=== PATIENT | female | born 1995 | race Caucasian/White ===

== ENCOUNTER → 2018-05-10 | Outpatient (CLI) | payer BC | LOC: M RAD 09:49 | DX: Z36.89 Encounter for other specified antenatal screening (principal); Z3A.17 17 weeks gestation of pregnancy | CPT/HCPCS: 76811 ==

== ENCOUNTER → 2018-07-10 | Outpatient (CLI) | payer BC ==
--- NOTE | 2018-07-11 06:16 | REP ---
Clinical: Anatomical evaluation. Comparison: 05/10/2018 . Findings: Examination demonstrates a single live intrauterine in cephalic presentation. motion is identified by technologist. Placenta is noted posterior fundal and grade grade zero without evidence for placenta previa or abruption. Amniotic fluid volume is normal. Cervix measures 3.5 cm in length and appears closed. No evidence for nuchal cord. Gestational age by LMP 28 weeks 0 days with JEFF 10/02/2018 . Gestational age by current measurements 26 weeks 0-day with JEFF is 10/16/2018 . FHR equals 126 beats per minute. Estimated weight a 179 grams ( 27th percentile based on age by first ultrasound ). Anatomical assessment demonstrates normal structures including cranium, choroid plexus, cavum, cerebellum/posterior fossa, facial features, lungs, four-chamber heart/ventricular outflow tracts, diaphragm, stomach, cord insertion/three-vessel cord, kidneys/bladder, and extremities. Impression: Single live intrauterine in cephalic presentation demonstrating appropriate interval growth. 2. In conjunction with prior examination anatomical assessment is complete and normal. No gross abnormalities are identified. Electronically Signed by John Astudillo MD 07/11/2018 06:08 A
== END ==
LOC: M RAD 09:17
PROVIDERS: ATTEND Advanced Practice Midwife
DX: Z36.2 Encounter for other antenatal screening follow-up (principal); Z3A.28 28 weeks gestation of pregnancy

== ENCOUNTER 2018-07-22 23:57 | Outpatient (CLI) | payer BC ==
[~2018-07-22] VITALS: Ht 162.6 cm; Wt 65.9 kg
[2018-07-23 00:17] VITALS: BP 123/70
[2018-07-23] MEDS ORDERED: PRENTAB9 PO (00:20)
== END 2018-07-23 01:24 | disposition home or self-care (01) ==
LOC: M LDO 23:57
PROVIDERS: ATTEND Specialist
DX: O26.892 Other specified pregnancy related conditions, second trimester (principal); Z3A.27 27 weeks gestation of pregnancy
CPT/HCPCS: 59025; G0378; G0463

== ENCOUNTER → 2018-07-26 | Outpatient (CLI) | payer BC ==
[~2018-07-26] MED LIST: PRENTAB9 PO
[2018-07-26 18:17] LABS: BASO % 0.3 % (0.0-1.0); EOS # 0.2 10^3/uL (0.0-0.50); EOS % 1.6 % (0.0-3.0); HEMATOCRIT 34.7 % (36.0-47.0); HEMOGLOBIN 11.5 g/dl (12.0-15.5); LYMPH # 1.6 10^3/uL (1.5-6.5); LYMPH % 13.5 % (24.0-44.0); MEAN CORPUSCULAR HEMOGLOBIN 30.4 pg (27.0-33.0); MEAN CORPUSCULAR HGB CONC 33.1 g/dl (32.0-36.5); MEAN CORPUSCULAR VOLUME 91.8 fl (80.0-96.0); MONO # 0.6 10^3/uL (0.0-0.8); MONO % 4.8 % (0.0-5.0); NEUTROPHILS # 9.1 10^3/uL (1.8-7.7); PLATELET COUNT, AUTOMATED 234 10^3/uL (150-450); RED BLOOD COUNT 3.78 10^6/uL (4.00-5.40); WHITE BLOOD COUNT 11.5 10^3/uL (4.0-10.0)
== END ==
LOC: M SMT 13:34
PROVIDERS: ATTEND Specialist
DX: Z36.89 Encounter for other specified antenatal screening (principal)

== ENCOUNTER 2018-08-12 23:57 | Outpatient (CLI) | payer BC ==
[~2018-08-12] VITALS: Ht 162.6 cm; Wt 66.7 kg
[2018-08-13 00:12] VITALS: BP 121/72
== END 2018-08-13 02:15 | disposition home or self-care (01) ==
LOC: M LDO 23:57
PROVIDERS: ATTEND Obstetrics & Gynecology
DX: O26.893 Other specified pregnancy related conditions, third trimester (principal); N89.8 Other specified noninflammatory disorders of vagina; Z3A.30 30 weeks gestation of pregnancy
CPT/HCPCS: 59025; G0378; G0463

== ENCOUNTER 2018-08-30 20:44 | Outpatient (CLI) | payer BC ==
[2018-08-30] MEDS ORDERED: LACTATED RINGER'S 1000 ML IV STA (21:11)
[2018-08-30] MEDS ORDERED: LR 1,000 ML IV SCH (21:11)
[2018-08-30] MEDS ORDERED: TERBUTALINE SULFATE 1 MG/ML VIAL (J3105) As Ordered ONE (22:50)
[2018-08-30] MEDS ORDERED: TERBUTALINE SULFATE 1 MG/ML VIAL (J3105) SC ONE (23:00)
== END 2018-08-31 07:00 | disposition home or self-care (01) ==
LOC: M LDO 20:44
PROVIDERS: ATTEND Specialist
DX: O47.03 False labor before 37 completed weeks of gestation, third trimester (principal); Z3A.33 33 weeks gestation of pregnancy
CPT/HCPCS: 59025; G0378; G0463; J3105

== ENCOUNTER 2018-09-10 15:51 | Outpatient (CLI) | payer BC ==
[~2018-09-10] VITALS: Ht 162.6 cm; Wt 68.9 kg
[2018-09-10] MEDS ORDERED: LACTATED RINGER'S 1000 ML IV ONE (16:30)
[2018-09-10 17:20] LABS: BASO % 0.3 % (0.0-1.0); EOS # 0.1 10^3/uL (0.0-0.50); EOS % 1.3 % (0.0-3.0); HEMATOCRIT 32.2 % (36.0-47.0); LYMPH # 1.7 10^3/uL (1.5-6.5); LYMPH % 18.2 % (24.0-44.0); MEAN CORPUSCULAR HEMOGLOBIN 29.6 pg (27.0-33.0); MEAN CORPUSCULAR HGB CONC 34.2 g/dl (32.0-36.5); MEAN CORPUSCULAR VOLUME 86.8 fl (80.0-96.0); MONO # 0.6 10^3/uL (0.0-0.8); MONO % 7.1 % (0.0-5.0); NEUTROPHILS # 6.5 10^3/uL (1.8-7.7); NEUTROPHILS % 72.2 % (36.0-66.0); PLATELET COUNT, AUTOMATED 230 10^3/uL (150-450); RED BLOOD COUNT 3.71 10^6/uL (4.00-5.40); WHITE BLOOD COUNT 9.1 10^3/uL (4.0-10.0)
[2018-09-10 17:24] LABS: AMORPHOUS SEDIMENT SMALL (NEGATIVE); APPEARANCE, URINE CLOUDY (CLEAR); BACTERIA, URINE AUTO 3+ (NEGATIVE); BILIRUBIN, URINE AUTO NEGATIVE (NEGATIVE); BLOOD, URINE BLOOD NEGATIVE (NEGATIVE); COLOR, URINE YELLOW (YELLOW); GLUCOSE, URINE (UA) AUTO NEGATIVE (NEGATIVE); KETONE, URINE AUTO NEGATIVE (NEGATIVE); LEUKOCYTE ESTERASE, URINE AUTO 1+ (NEGATIVE); MUCUS, URINE SMALL (NEGATIVE); NITRITE, URINE AUTO NEGATIVE (NEGATIVE); PROTEIN, URINE AUTO NEGATIVE (NEGATIVE); RBC, URINE AUTO 9 /HPF (0-3); SPECIFIC GRAVITY URINE AUTO 1.012 (1.002-1.035); SQUAMOUS EPITHELIAL CELL UR AU 1 /HPF (0-6); UROBILINOGEN, URINE AUTO 0.2 mg/dL (0.0-2.0); WBC, URINE AUTO 6 /HPF (0-3)
[2018-09-10] MEDS: BETAMETHASONE SOLUSPAN 6MG/ML INJ 5ML (J0702) IM SCH (17:47)
[2018-09-10] MEDS: LR 1,000 ML IV SCH ×2 (17:58→22:11)
[2018-09-10 18:02] VITALS: BP 128/64
[2018-09-10 19:41] VITALS: BP 117/65
[2018-09-10 20:59] VITALS: BP 120/66
[2018-09-10] MEDS ORDERED: BUTORPHANOL 2 MG/ML INJ (J0595) IV ONE (21:45)
[2018-09-10] MEDS ORDERED: PROMETHAZINE INJ 25 MG/ML VIAL (J2550) IV ONE (21:45)
--- NOTE | 2018-09-10 21:54 | IPNPDOC ---
Text Note Date of Service The patient was seen on 09/10/18. NOTE Subjective: Patient is a 23-year-old female who is a at 34.4 weeks gest ation with an JEFF of 10/18/18 based off of her 1st trimester ultrasound. She initiated care in her first trimester. Her has been complicated by contractions. She had an episode last week with contractions and was given terbutaline and fluids, which resolved her contractions. She presents today with complaints of contractions that have increased in frequency and intensity since she was seen this morning in the office. She denies leaking of fluid or vaginal bleeding. She reports active movement. Past medical history: varicella as a child Surgical History: labioplasty Social history: . Denies history of STIs. Denies being a smoker, having a history or current abuse of alcohol, and denies history or current use of illicit drugs. Family History: dibetes, hypertension, heart disease, liver disease, and thyroid dysfunction. Objective: VS and labs: see below. GBS collected. FHR: 130, moderate variability, positive accelerations, no decelerations. Contractions: regular. Abdomen palpates mild. SVE: 175/-2, anterior, soft, no show. No change from exam done this morning by Dr. Aguiar. No cervical exam 5 hours after initial exam at 2 pm. Still having regular contractions. Assessment: IUP at 34.4 weeks gestation; contractions Plan: Reviewed with Dr. Aguiar. Decision made to start patient on betamethasone injections as patient is wing and has been seen more than once for contractions. Betamethasone ordered. Saline lock with IV fluids given. Patient offered Stadol and Phenergan for to help her relax and to help her sleep. Will reassess in the morning or if patient becomes more uncomfortable. VS,Fishbone, I+O VS, Fishbone, I+O Laboratory Tests 09/10/18 17:10 Red Blood Count 3.71 L, Mean Corpuscular Volume 86.8, Mean Corpuscular Hemoglobin 29.6, Mean Corpuscular Hemoglobin Concent 34.2, Red Cell Distribution Width 13.7, Neutrophils (%) (Auto) 72.2 H, Lymphocytes (%) (Auto) 18.2 L, Winston cytes (%) (Auto) 7.1 H, Eosinophils (%) (Auto) 1.3, Basophils (%) (Auto) 0.3, Neutrophils # (Auto) 6.5, Lymphocytes # (Auto) 1.7, Monocytes # (Auto) 0.6, Eosinophils # (Auto) 0.1, Basophils # (Auto) 0.0 Vital Signs Date Time Temp Pulse Resp B/P (MAP) Pulse Ox O2 Delivery O2 Flow Rate FiO2 09/10/18 19:41 98.8 92 16 117/65 (82) LISA BENOIT Sep 10, 2018 21:54
[2018-09-10 22:07] VITALS: BP 115/60
[2018-09-10 23:08] VITALS: BP 113/62
[2018-09-11] VITALS (8 sets, daily range): BP systolic 100–129; BP diastolic 53–69
[2018-09-11] MEDS: LR 1,000 ML IV SCH (07:20)
[2018-09-11] MEDS: BETAMETHASONE SOLUSPAN 6MG/ML INJ 5ML (J0702) IM SCH (17:31)
== END 2018-09-11 17:50 | disposition home or self-care (01) ==
LOC: M LDO 15:51
PROVIDERS: ATTEND Advanced Practice Midwife
DX: O47.03 False labor before 37 completed weeks of gestation, third trimester (principal); Z3A.34 34 weeks gestation of pregnancy
CPT/HCPCS: 59025; 81001; 85025; 87081; 87086; 87186; 96360; 96361; 96372; 96374; 96375; G0378; G0463; J0595; J0702

== ENCOUNTER → 2018-09-27 | Outpatient (CLI) | payer BC ==
[~2018-09-27] VITALS: Ht 162.6 cm; Wt 70.6 kg
[2018-09-27 18:03] VITALS: BP 113/63
[2018-09-27 19:56] VITALS: BP 118/71
== END ==
LOC: M LDO 17:46
PROVIDERS: ATTEND Specialist
DX: O26.853 Spotting complicating pregnancy, third trimester (principal); O26.893 Other specified pregnancy related conditions, third trimester; R10.30 Lower abdominal pain, unspecified; O36.8130 Decreased fetal movements, third trimester, not applicable or unspecified; O47.1 False labor at or after 37 completed weeks of gestation; Z3A.37 37 weeks gestation of pregnancy
CPT/HCPCS: 59025; G0378; G0463

== ENCOUNTER → 2018-10-10 | Outpatient (CLI) | payer BC ==
[~2018-10-10] MED LIST changes: +IBUP-1022 PO; +PERC5TAB12 PO
== END ==
LOC: M SMT 09:17
PROVIDERS: ATTEND Advanced Practice Midwife
DX: O47.03 False labor before 37 completed weeks of gestation, third trimester (principal); Z3A.00 Weeks of gestation of pregnancy not specified

== ENCOUNTER 2018-10-14 09:09 | Inpatient (IN) | payer BC ==
[~2018-10-14] VITALS: Ht 160 cm; Wt 70.9 kg
[2018-10-14] VITALS (32 sets, daily range): BP systolic 100–131; BP diastolic 52–82
[~2018-10-14 09:09] MED LIST changes: -IBUP-1022 PO; -PERC5TAB12 PO
[2018-10-14] MEDS ORDERED: PENICILLIN G POTASSIUM IV 5 MU in D5W MINI-BAG PLUS 100 ML IV STA (09:42)
[2018-10-14 10:36] LABS: HEMATOCRIT 38.6 % (36.0-47.0); HEMOGLOBIN 12.8 g/dl (12.0-15.5); MEAN CORPUSCULAR HGB CONC 33.2 g/dl (32.0-36.5); MEAN CORPUSCULAR VOLUME 87.5 fl (80.0-96.0); PLATELET COUNT, AUTOMATED 221 10^3/uL (150-450); RED BLOOD COUNT 4.41 10^6/uL (4.00-5.40); WHITE BLOOD COUNT 12.8 10^3/uL (4.0-10.0)
[2018-10-14] MEDS ORDERED: OXYTOCIN DRIP 30 UNITS in APPROPRIATE DILUENT 1 EA IV SCH ×2 (12:00→18:33)
[2018-10-14] MEDS: LR 1,000 ML IV SCH ×2 (12:03→15:25)
--- NOTE | 2018-10-14 13:19 | HPE ---
DATE OF ADMISSION: 10/14/2018 23-year-old female at 39 3/7 weeks gestation by 6 week ultrasound. EDC 10/18/2018 presents for regular contractions every 3-4 minutes for the last several hours. The contractions increased in intensity. She denies vaginal bleeding. There is good movement. COURSE: Patient initiated care at 6 weeks gestation on 02/27/2018. Her first trimester blood pressure was 160/62. Weight was 122 pounds. Patient had labor and had multiple visit to triage during the course of the . She completed steroids at 34 weeks gestation. MEDICAL HISTORY: Noncontributory. SURGICAL HISTORY: Labiaplasty. ALLERGIES: None. SOCIAL HISTORY: Patient is . She denies cigarettes, alcohol or drug use. She lives in [place]. FAMILY HISTORY: Noncontributory. PHYSICAL EXAMINATION: Blood pressure 124/74, pulse 84. She appears mildly uncomfortable. Head and neck exam normal. Lungs are clear. Heart is regular rate and rhythm. Abdomen nontender. Gravid. heart tones category 1. Sterile vaginal exam 3 cm 90% -2 posterior soft vertex. Contractions are 2-3. Extremities are nontender. LABS: Blood type O positive. Rubella immune, RPR nonreactive. GBS positive 09/10/2018. ASSESSMENT: 23-year-old G1 at 39 and 3/7 weeks gestation. PLAN: Patient is admitted on 10/14/2018. Penicillin for GBS positive status.
[2018-10-14] MEDS ORDERED: PENICILLIN G POTASSIUM IV 2.5 MU in APPROPRIATE DILUENT 1 EA IV SCH (14:30)
[2018-10-14] MEDS ORDERED: FENTANYL 2MCG/ML ROPIVACAINE 0.2% IN 0.9% NACL 100ML IVBAG As Ordered ONE (14:48)
[2018-10-14] MEDS ORDERED: ePHEDrine SULFATE 25 MG/5 ML(5MG/ML) SYRINGE As Ordered ONE (16:36)
[2018-10-14] MEDS ORDERED: BICITRA 30ML SOLN UDC PO ONE (17:00)
[2018-10-14] MEDS ORDERED: diphenhydrAMINE INJ 50MG/ML VIAL (J1200) IV PRN ×2 (17:15→18:29)
[2018-10-14] MEDS ORDERED: REFRIGERATOR IV KEYS XX PRN (17:15)
[2018-10-14] MEDS ORDERED: ePHEDrine SULFATE 25 MG/5 ML(5MG/ML) SYRINGE IV PRN (17:15)
[2018-10-14] MEDS ORDERED: LACTATED RINGER'S 1000 ML IV PRN (17:15)
[2018-10-14] MEDS ORDERED: EPIDURAL/PCA KEYS XX PRN (17:15)
[2018-10-14] MEDS ORDERED: NALOXONE INJ 0.4 MG/1 ML VIAL (J2310) IV PRN ×3 (17:15→18:29)
[2018-10-14] MEDS ORDERED: EPIDURAL COMMENT XX SCH (17:15)
[2018-10-14] MEDS ORDERED: FENTANYL/ROPIVACAINE/NACL BAG 100 ML EPIDURAL SCH (17:15)
[2018-10-14] MEDS ORDERED: ONDANSETRON 4MG/2ML VIAL (J2405) IV PRN ×4 (17:15→18:45)
[2018-10-14] MEDS ORDERED: BICITRA 30ML SOLN UDC As Ordered ONE (17:43)
[2018-10-14] MEDS ORDERED: ceFAZolin 2 GM/D5W 50 ML IV BAG (J0690 PER 500MG) As Ordered ONE (17:43)
[2018-10-14] MEDS ORDERED: OXYTOCIN INJ 10 UNITS/ML VIAL (J2590) As Ordered ONE (18:02)
[2018-10-14] MEDS ORDERED: LIDOCAINE 2% W/EPIN INJ 20ML **PRES FREE As Ordered ONE (18:13)
[2018-10-14] MEDS ORDERED: MORPHINE PRES-FREE INJ 10 MG/10 ML VIAL (J2274) As Ordered ONE (18:15)
[2018-10-14 18:28] LABS: CORD GAS ABE V -6.2; CORD GAS HCO3 V 21.3 MEQ/L; CORD GAS O2 SAT V 30.8 %; CORD GAS PCO2 V 49.1 mmHg; CORD GAS PH V 7.256 UNITS; CORD GAS PO2 V 18.2 mmHg; CORD GAS SBC V 17.8 MEQ/L; CORD GAS TCO2 V 22.8 MEQ/L
[2018-10-14] MEDS ORDERED: NALBUPHINE HCL 10 MG/ML AMP (J2300) IV PRN ×2 (18:29→18:45)
[2018-10-14] MEDS ORDERED: METOCLOPRAMIDE INJ 10MG/2ML VIAL (J2765) IV PRN ×2 (18:29→18:45)
[2018-10-14 18:30] LABS: CORD GAS ABE A -4.6; CORD GAS O2 SAT A 15.7 %; CORD GAS PH A 7.203 UNITS; CORD GAS PO2 A 12.2 mmHg; CORD GAS SBC A 18.6 MEQ/L
[2018-10-14] MEDS ORDERED: LR 1,000 ML IV SCH (18:33)
[2018-10-14] MEDS ORDERED: PERC5TAB12 PO (18:37)
[2018-10-14] MEDS ORDERED: IBUP-1022 PO (18:38)
[2018-10-14] MEDS ORDERED: DOCUSATE SODIUM 100 MG CAP PO PRN (18:45)
[2018-10-14] MEDS ORDERED: MEASLES,MUMPS,RUBELLA VACCINE INJ (MMR-II) (90707) SC SCH (18:45)
[2018-10-14] MEDS ORDERED: PERCOCET 5MG/325MG TAB PO PRN ×2 (18:45)
[2018-10-14] MEDS ORDERED: KETOROLAC 30 MG/ML VIAL (J1885) IV PRN (18:45)
[2018-10-14] MEDS ORDERED: fentaNYL 100 MCG/2 ML INJECTION (J3010) IV PRN (18:45)
[2018-10-14] MEDS ORDERED: RHOGAM 300 MCG (1500 IU) INJ (J2790) IM SCH (18:45)
[2018-10-14] MEDS ORDERED: KETOROLAC 30 MG/ML VIAL (J1885) As Ordered ONE (19:47)
[2018-10-14] MEDS: KETOROLAC 30 MG/ML VIAL (J1885) IV SCH (19:50)
[2018-10-14] MEDS ORDERED: OXYTOCIN 30 UNITS IN 0.9% NaCl 500ML IV BAG (J2590) As Ordered ONE (19:59)
[2018-10-15] VITALS (7 sets, daily range): BP systolic 108–124; BP diastolic 56–72
[2018-10-15] MEDS: KETOROLAC 30 MG/ML VIAL (J1885) IV SCH ×3 (01:50→15:25)
[2018-10-15 06:38] LABS: HEMATOCRIT 32.9 % (36.0-47.0); MEAN CORPUSCULAR HEMOGLOBIN 29.3 pg (27.0-33.0); MEAN CORPUSCULAR HGB CONC 32.8 g/dl (32.0-36.5); MEAN CORPUSCULAR VOLUME 89.4 fl (80.0-96.0); PLATELET COUNT, AUTOMATED 166 10^3/uL (150-450); RED BLOOD COUNT 3.68 10^6/uL (4.00-5.40); WHITE BLOOD COUNT 14.9 10^3/uL (4.0-10.0)
[2018-10-15 06:39] LABS: HEMOGLOBIN 10.8 g/dl (12.0-15.5)
[2018-10-15] MEDS: PRENATAL VITAMINS CHEWABLE TABLET PO SCH (08:39)
--- NOTE | 2018-10-15 08:42 | RO ---
DATE OF PROCEDURE: 10/14/2018 PREOPERATIVE DIAGNOSES: 39 plus weeks, labor, bradycardia, arrest of descent. POSTOPERATIVE DIAGNOSES: 39 plus weeks, labor, bradycardia, arrest of descent. PROCEDURE: Primary low transverse section. SURGEON: Gerardo Kennedy MD COPY CHIEF: Leonila Malik MD ANESTHESIA: Epidural. ESTIMATED BLOOD LOSS: 600 mL. URINE OUTPUT: 100 mL. IV FLUIDS: 2200 mL Lactated Ringer's. FINDINGS: 7 pound 15 ounce, 3600 gram, male infant. scores of 3, 9 and 9. Venous blood gas 7.25, base excess -6.2. Arterial blood gas 7.20, base excess -4.0. Right occiput transverse and anterior asynclitism present. OPERATIVE SUMMARY: Patient taken to the operating room where epidural anesthesia was found to be adequate. She was prepped and draped in a sterile fashion in a supine position. A Valdovinos catheter was already in place. A Pfannenstiel skin incision was made with a scalpel, carried through to the fascia, the fascia was nicked and extended, the fascia dissected off the rectus muscles. The rectus muscles were divided and peritoneal cavity was entered. A bladder flap was created. A curvilinear incision was made in the lower uterine segment until clear fluid was noted. This was extended manually. The was delivered from the vertex position without difficulty. The cord was doubly clamped and cut. The infant was handed off to the awaiting clinical liaison. The placenta was expressed. The uterus was exteriorized and cleared of clots and debris. The uterine incision was cleared with #0 Vicryl in a running locked fashion. A second imbricating layer of #0 Vicryl was placed. The uterus was placed back in the abdominal cavity. Perineum closed with #2-0 Vicryl in a running fashion. The fascia was closed with #0 Vicryl in a running fashion. The fascia and the deep layer was irrigated. The skin was closed with #4-0 Monocryl subcuticular sutures. Sponge, instrument and needle counts were correct. Leonila Malik MD assisted in all aspects of the procedure from beginning to end. She assisted with creation of all layers of the abdomen and hysterectomy. She assisted with delivery of the fetus and subsequent closure of all layers.
[2018-10-15] MEDS: IBUPROFEN 800 MG TAB PO SCH (21:27)
[2018-10-16 02:00] VITALS: BP 113/67
[2018-10-16] MEDS: IBUPROFEN 800 MG TAB PO SCH (05:33)
[2018-10-16 05:38] VITALS: BP 115/72
--- NOTE | 2018-10-16 06:31 | DS.PDOC ---
Discharge Summary General Date of Admission Oct 14, 2018 at 09:38 Date of Discharge 10/16/2018 Attending Physician: PRISCA ROSARIO MD Discharge Summary PROCEDURES PERFORMED DURING STAY: primary low transverse section. ADMITTING DIAGNOSES: 1. IUP at 39.3 weeks gestation. 2. Active labor DISCHARGE DIAGNOSES: 1. day 2 postoperative. COMPLICATIONS/CHIEF COMPLAINT: LABOR. HISTORY OF PRESENT ILLNESS: Patient is a at 39.3 weeks gestation who presented to L&D in active labor. The decision was made to proceed to a section due to bradycardia and arrest of descent. DISCHARGE MEDICATIONS: Please see below. ALLERGIES: Please see below. PHYSICAL EXAMINATION ON DISCHARGE: VITAL SIGNS: Please see below. GENERAL: HEENT: NECK: CARDIOVASCULAR EXAMINATION: RESPIRATORY EXAMINATION: ABDOMINAL EXAMINATION: EXTREMITIES: SKIN: NEUROLOGICAL EXAMINATION: PSYCHIATRIC EXAMINATION: LABORATORY DATA: Please see below. IMAGING: PROGNOSIS: ACTIVITY: [As tolerated]. DIET: DISCHARGE PLAN: DISPOSITION: . DISCHARGE INSTRUCTIONS: 1. . ITEMS TO FOLLOWUP ON ON OUTPATIENT: 1. . DISCHARGE CONDITION: [Stable]. TIME SPENT ON DISCHARGE: Greater than minutes. Vital Signs/I&Os Vital Signs Date Time Temp Pulse Resp B/P (MAP) Pulse Ox O2 Delivery O2 Flow Rate FiO2 10/16/18 05:38 97.4 88 18 115/72 (86) 97 I&O- Last 24 Hours up to 6 AM 10/16/18 06:00 Output Total 1000 ml Balance -1000 ml Laboratory Data Labs 24H Laboratory Tests 2 10/15/18 06:12: Nucleated Red Blood Cells % (auto) 0.0 CBC/BMP Laboratory Tests 10/15/18 06:12 Red Blood Count 3.68 L, Mean Corpuscular Volume 89.4, Mean Corpuscular Hemoglobin 29.3, Mean Corpuscular Hemoglobin Concent 32.8, Red Cell Distribution Width 14.8 H Discharge Medications Scheduled Ibuprofen (Ibuprofen) 600 Mg Tablet, 1 TAB PO TID for pain with food No.137/Iron/Folic Acd ( Vitamin Tablet) 1 Tab Tab, 1 TAB PO DAILY, (Reported) Scheduled PRN Oxycodone HCl/Acetaminophen (Percocet 5-325 mg Tablet) 1 Each Tablet, 1 TAB PO TIDP PRN for pain Allergies Coded Allergies: No Known Allergies (Unverified , 07/23/18) LISA BENOIT CNM Oct 16, 2018 06:31
[2018-10-16] MEDS: PRENATAL VITAMINS CHEWABLE TABLET PO SCH (08:32)
== END 2018-10-16 10:45 | disposition home or self-care (01) | DRG 540 ==
LOC: M LDO 09:09 → M LDI 09:38 → M OBS 21:00
PROVIDERS: ADMIT Specialist; ATTEND Specialist
PROC: 10D00Z1 Extraction of Products of Conception, Low, Open Approach (ICD-10-PCS; principal; 2018-10-14 17:52)
DX: O99.824 Streptococcus B carrier state complicating childbirth (principal); Z3A.39 39 weeks gestation of pregnancy; O76 Abnormality in fetal heart rate and rhythm complicating labor and delivery; O64.0XX0 Obstructed labor due to incomplete rotation of fetal head, not applicable or unspecified; Z37.0 Single live birth

== ENCOUNTER 2019-01-27 10:30 | Emergency (ER) | payer BC ==
[~2019-01-27] VITALS: Ht 157.5 cm; Wt 55.5 kg
[2019-01-27 10:30] VITALS: BP 136/63
[~2019-01-27 10:30] MED LIST changes: +IBUP-1022 PO; +PERC5TAB12 PO
[2019-01-27] MEDS ORDERED: NS 1,000 ML IV ONE (11:30)
[2019-01-27 11:45] LABS: BASO # 0.1 10^3/uL (0.0-0.2); BASO % 0.8 % (0.0-1.0); EOS # 0.1 10^3/uL (0.0-0.50); EOS % 2.2 % (0.0-3.0); HEMOGLOBIN 13.8 g/dl (12.0-15.5); LYMPH # 2.3 10^3/uL (1.5-6.5); MEAN CORPUSCULAR HEMOGLOBIN 28.9 pg (27.0-33.0); MEAN CORPUSCULAR HGB CONC 32.9 g/dl (32.0-36.5); MEAN CORPUSCULAR VOLUME 87.9 fl (80.0-96.0); MONO # 0.6 10^3/uL (0.0-0.8); MONO % 9.2 % (0.0-5.0); NEUTROPHILS # 3.2 10^3/uL (1.8-7.7); NEUTROPHILS % 50.6 % (36.0-66.0); PLATELET COUNT, AUTOMATED 290 10^3/uL (150-450); RED BLOOD COUNT 4.78 10^6/uL (4.00-5.40); WHITE BLOOD COUNT 6.3 10^3/uL (4.0-10.0)
[2019-01-27] MEDS ORDERED: KETOROLAC 30 MG/ML VIAL (J1885) IV ONE (11:45)
[2019-01-27] MEDS ORDERED: ONDANSETRON 4MG/2ML VIAL (J2405) IV ONE (11:45)
[2019-01-27 11:58] LABS: ALBUMIN 4.1 GM/DL (3.2-5.2); ALT/SGPT 21 U/L (12-78); BILIRUBIN,DIRECT < 0.1 MG/DL (0.0-0.2); BILIRUBIN,TOTAL 0.3 MG/DL (0.2-1.0); BLOOD UREA NITROGEN 11 MG/DL (7-18); CALCIUM LEVEL 9.3 MG/DL (8.5-10.1); CARBON DIOXIDE LEVEL 24 MEQ/L (21-32); CHLORIDE LEVEL 111 MEQ/L (98-107); CREATININE FOR GFR 1.12 MG/DL (0.55-1.30); GLOMERULAR FILTRATION RATE > 60.0 (>60); GLUCOSE, FASTING 93 MG/DL (70-100); LIPASE 115 U/L (73-393); POTASSIUM SERUM 3.7 MEQ/L (3.5-5.1); SODIUM LEVEL 143 MEQ/L (136-145); TOTAL PROTEIN 7.2 GM/DL (6.4-8.2)
[2019-01-27] MEDS ORDERED: IBUP80TA PO (13:35)
[2019-01-27] MEDS ORDERED: FLOM0.4C39 PO (13:35)
--- NOTE | 2019-01-29 16:00 | REP ---
CT of the abdomen pelvis without IV or bowel contrast: There are no comparisons. There are multiple bilateral renal calculi measuring to 4 mm size. There is right hydronephrosis and hydroureter. There is a 4 mm calculus in the distal tip of the right ureter at the UVJ. There is no left hydronephrosis or hydroureter. There is no perinephric stranding on the right or the left. The visualized lung no are unremarkable. The unenhanced hepatic parenchyma, gallbladder, pancreas, spleen, adrenals and abdominal aorta are unremarkable. The bowel and mesentery are unremarkable. Pelvis: The appendix is unremarkable. The uterus and adnexa are unremarkable. There is no ascites or adenopathy. Impression: 4 mm calculus at the distal tip of the right ureter. Right hydroureter and hydronephrosis. Multiple bilateral renal calculi. Electronically Signed by Rufino Minaya MD 01/27/2019 12:45 P
== END 2019-01-27 13:48 | disposition home or self-care (01) ==
LOC: M ED 10:30
DX: N20.1 Calculus of ureter (principal); N20.0 Calculus of kidney; N80.9 Endometriosis, unspecified; N83.299 Other ovarian cyst, unspecified side; Z87.448 Personal history of other diseases of urinary system; N13.4 Hydroureter; N13.30 Unspecified hydronephrosis
CPT/HCPCS: 74176; 80048; 80076; 81001; 83690; 84702; 85025; 96361; 96374; 96375; 99284; J1885; J2405